=== PATIENT | female | born 1985 | race Caucasian/White ===

== ENCOUNTER 2020-03-30 19:53 | Emergency (ER) | payer BC ==
[~2020-03-30] VITALS: Ht 154.9 cm; Wt 84.4 kg
[2020-03-30 20:08] VITALS: Ht 154.9 cm; Wt 84.4 kg
[2020-03-30 21:29] LABS: BASOPHIL % 0.5 % (0-2); PLATELET COUNT 135 x10^3mcL (130-400); RED CELL DISTRIBUTION WIDTH 13.5 % (11.5-14.5)
[2020-03-30 21:42] LABS: CALCIUM 8.4 mg/dL (8.5-10.1); CARBON DIOXIDE 35.5 mmol/L (21-32); CREATININE SERUM 1.1 mg/dL (0.6-1.0); POTASSIUM SERUM 4.1 mmol/L (3.5-5.1)
[2020-03-30 21:47] LABS: BILIRUBIN TOTAL 0.38 mg/dL (0.20-1.00); TOTAL PROTEIN, SERUM 7.4 g/dL (6.4-8.2)
[2020-03-30 22:55] VITALS: BP 165/88
== END 2020-03-30 22:55 | disposition home or self-care (01) ==
LOC: ED 19:53
PROVIDERS: Emergency Medicine
DX: R10.2 Pelvic and perineal pain (principal); R11.0 Nausea